=== PATIENT | male | born 2000 | race Caucasian/White ===

== ENCOUNTER 2023-04-20 | Emergency (ER) | payer SELFPAY ==
[2023-04-20 00:08] VITALS: BP 127/79; PULSE 89; RESP 16; O2SAT 98; BMI 18.9
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
[2023-04-20] MEDS: LORAZEPAM 0.5 MG TABLET 1 MG PO (01:12)
== END 2023-04-20 01:20 | disposition home or self-care (01) ==
PROVIDERS: Emergency Provider Emergency Medicine
DX: F41.9 Anxiety disorder, unspecified (principal); F39 Unspecified mood [affective] disorder; F17.210 Nicotine dependence, cigarettes, uncomplicated
CPT/HCPCS: 99283